=== PATIENT | male | born 1940 | race Caucasian/White ===

== ENCOUNTER → 2018-07-21 | Outpatient (CLI) | payer MEDICARE, OTHER ==
[~2018-07-21] MED LIST: ALF10 PO; ALFU10TA9 PO; ASPI-1471 PO; ASPI-715 PO; ATR80PT PO; AZIT500T47 PO; BYSTOLIC; CEPH500C24 PO; CIPRO; COLE1TAB5 PO; CRAN500C11 PO; DOC100 PO; DYA PO; ECHI400C16 PO; ECHI400C2 PO; ESOM40CA42 PO; EZE10 PO; FINA5TAB64 PO; GLUC-307 PO; GUAI-645 PO; HYDR-3083 PO; HYDR12.558 PO; IBU800 PO; KET10 PO; LEV100 PO; LEVO-315 PO; LEVO75TA68 PO; LISI-362 PO; LOR5 PO; MAGN250T25 PO; MAGNESIUM; METO25TA93 PO; MULT1CAP41 PO; NAP500 PO; NAPR-1043 PO; NAPR-744 PO; NEBI10TA4 PO; NIA500 PO; OMEP-218 PO; ONDA4TAB PO; OXYC-865 PO; PANT40TA65 PO; PER PO; PHEN100T27 PO; RIVA15TA PO; TRAM-420 PO; ZICAM PO
--- NOTE | 2018-07-21 12:05 | RADIOLOGY IMAGING REPORT ---
[place]AC[place] [facility] [place] NAME: Gerardo Majano : 1940 MR: [id number] V: [id number] EXAM DATE: ORDERING PHYSICIAN: KELLE DAVISON TECHNOLOGIST: Location[place] [facility] [place] Patient: Gerardo Majano : 1940 Visit/Account:[id number] Date of Sevice: 07/21/2018 Exam type: KNEE 3 VIEW RIGHT History: Pain Comparison: 09/27/2014. Findings: Postoperative changes are noted from right knee arthroplasty without hardware complication. No acute fracture. Patient is osteopenic. Calcifications near the medial femoral condyle are stable. No si gnificant knee effusion. Some stranding in Hoffa's fat pad is noted. IMPRESSION: 1. Postoperative changes are noted from right knee arthroplasty without hardware complication. 2. Osteopenia. Report Dictated By: Barron Cowan MD at 07/21/2018 11:59 AM Report E-Signed By: Barron Cowan MD at 07/21/2018 12:01 PM WSN:[email or web address]
== END ==
LOC: RAD 10:15
PROVIDERS: ATTEND Family Medicine
DX: Z96.651 Presence of right artificial knee joint (principal); M85.88 Other specified disorders of bone density and structure, other site

== ENCOUNTER → 2019-01-08 | Outpatient (CLI) | payer MEDICARE, OTHER ==
--- NOTE | 2019-01-08 13:56 | RADIOLOGY IMAGING REPORT ---
FACILITY: [facility] - [place] PATIENT NAME: Gerardo Majano : 1940 MR: [id number] V: [id number] EXAM DATE: ORDERING PHYSICIAN: OMA PHILLIP TECHNOLOGIST: Location: [facility] Patient: Gerardo Majano : 1940 Visit/Account:[id number] Date of Sevice: 01/08/2019 CHEST PA LAT Indication: Low oxygen saturation, and hypertension. Comparison: None Findings: Lungs: Clear. Mediastinum/pulmonary vasculature: Heart size and pulmonary vasculature are normal. Bones/soft tissues: Normal. IMPRESSION: Clear lungs. Report Dictated By: Jose Max at 01/08/2019 1:49 PM Report E-Signed By: Jose Max at 01/08/2019 1:50 PM WSN:[email or web address]
== END ==
LOC: RAD 12:44
PROVIDERS: ATTEND Family Medicine
DX: I10 Essential (primary) hypertension (principal)
CPT/HCPCS: 71046